=== PATIENT | male | born 1965 | race Caucasian/White ===

== ENCOUNTER 2019-12-17 08:06 | Outpatient (REF) | payer OTHER, SELFPAY ==
[2019-12-17 08:32] LABS: COVID-19 Test Negative (Negative)
== END 2019-12-17 08:07 | disposition home or self-care (01) ==
LOC: HO.LAB 08:06
PROVIDERS: PCP Internal Medicine; Visit Provider Internal Medicine
DX: Z20.828 Contact with and (suspected) exposure to other viral communicable diseases (principal)
CPT/HCPCS: 36415; 87635

== ENCOUNTER 2019-12-26 10:39 | Outpatient (REF) | payer OTHER, SELFPAY ==
[2019-12-26 11:03] LABS: COVID-19 Test Negative (Negative)
== END 2019-12-26 10:40 | disposition home or self-care (01) ==
LOC: HO.LAB 10:39
PROVIDERS: PCP Internal Medicine; Visit Provider Internal Medicine
DX: Z20.828 Contact with and (suspected) exposure to other viral communicable diseases (principal)
CPT/HCPCS: 87635

== ENCOUNTER 2020-01-24 08:11 | Outpatient (REF) | payer OTHER, SELFPAY ==
[2020-01-24 08:33] LABS: COVID-19 Test Negative (Negative)
== END 2020-01-24 08:12 | disposition home or self-care (01) ==
LOC: HO.EMPCOV 08:11
PROVIDERS: Visit Provider Internal Medicine
DX: Z20.828 Contact with and (suspected) exposure to other viral communicable diseases (principal)
CPT/HCPCS: 87635; C9803

== ENCOUNTER 2020-03-11 16:06 | Outpatient (REF) | payer SELFPAY ==
[2020-03-11 16:57] LABS: Cholesterol 199 mg/dL
[2020-03-12 05:01] LABS: SARS COV2 IgG Negative (Negative)
== END 2020-03-11 16:07 | disposition home or self-care (01) ==
LOC: HO.LNC 16:06
PROVIDERS: Visit Provider Pathology Anatomic Pathology & Clinical Pathology
DX: Z20.828 Contact with and (suspected) exposure to other viral communicable diseases (principal); Z13.220 Encounter for screening for lipoid disorders
CPT/HCPCS: 82465; 86769

== ENCOUNTER 2020-05-11 09:06 | Outpatient (REF) | payer OTHER, SELFPAY ==
[2020-05-11 10:10] LABS: COVID-19 Test Negative (Negative); IDNOW Serial# 55D5AD1C
== END 2020-05-11 09:07 | disposition home or self-care (01) ==
LOC: HO.EMPCOV 09:06
PROVIDERS: Visit Provider Internal Medicine
DX: Z20.822 Contact with and (suspected) exposure to COVID-19 (principal)
CPT/HCPCS: 36415; 87635; C9803

== ENCOUNTER 2020-10-08 08:16 | Outpatient (REF) | payer OTHER, SELFPAY ==
[2020-10-08 12:16] LABS: Influenza A PCR NEGATIVE (Negative); Influenza B PCR NEGATIVE (Negative); Resp Syncy Virus RNA Qual PCR NEGATIVE (Negative); SARS COV2 PCR INHOUSE NEGATIVE (Negative)
== END 2020-10-08 08:17 | disposition home or self-care (01) ==
LOC: HO.LAB 08:16
PROVIDERS: Visit Provider Internal Medicine
DX: Z20.822 Contact with and (suspected) exposure to COVID-19 (principal)
CPT/HCPCS: 0241U; 36415; C9803

== ENCOUNTER 2021-07-22 09:52 | Outpatient (REF) | payer OTHER, SELFPAY ==
[2021-07-22 11:12] LABS: Influenza A PCR NEGATIVE (Negative); Influenza B PCR NEGATIVE (Negative); Resp Syncy Virus RNA Qual PCR NEGATIVE (Negative); SARS COV2 PCR INHOUSE NEGATIVE (Negative)
== END 2021-07-22 09:53 | disposition home or self-care (01) ==
LOC: HO.LAB 09:52
PROVIDERS: Visit Provider Internal Medicine
DX: Z20.822 Contact with and (suspected) exposure to COVID-19 (principal)
CPT/HCPCS: 0241U; C9803

== ENCOUNTER 2022-09-06 13:20 | Outpatient (REF) | payer OTHER, SELFPAY | END 2022-09-06 13:21 | disposition home or self-care (01) | LOC: HO.HOSX 13:20 | PROVIDERS: Visit Provider Orthopaedic Surgery | DX: Z13.89 Encounter for screening for other disorder (principal) ==

== ENCOUNTER 2022-09-06 13:38 | Outpatient (REF) | payer OTHER, SELFPAY ==
--- NOTE | ~2022-09-06 | XR_ITS ---
EXAMINATION: XR FOOT, RIGHT CLINICAL INFORMATION: Right foot pain. COMPARISON: None available. TECHNIQUE: AP, lateral, and oblique views of the right foot. FINDINGS: Efqg-gm-mbazjsxg degenerative joint changes are seen in the first metatarsophalangeal joint. There is no acute fracture or dislocation. The tarsal bones are normally aligned. The soft tissues are unremarkable. XR/XR foot RT min 3V IMPRESSION: Wgvx-mh-lgqwzwhi first metatarsophalangeal osteoarthritis. No acute fracture.
== END 2022-09-06 13:39 | disposition home or self-care (01) ==
LOC: HO.XRAY 13:38
PROVIDERS: Visit Provider Orthopaedic Surgery
DX: M79.671 Pain in right foot (principal)
CPT/HCPCS: 73630

== ENCOUNTER 2022-09-08 08:36 | Outpatient (REF) | payer OTHER, SELFPAY ==
[2022-09-08 08:47] LABS: MANUAL DIFF FLAG NO
[2022-09-08 09:04] LABS: Basophils Percent Auto 0.7 % (0-2); Eosinophils Absolute Auto 0.1 X10*3/uL (0.0-0.4); Eosinophils Percent Auto 1.7 % (0-4); Hematocrit 51.6 % (42.0-52.0); Hemoglobin 17.7 g/dl (14.0-18.0); Imm Gran Abs Auto 0.03 X10*3/uL (0.00-0.03); Imm Gran Pct Auto 0.7 % (0.0-0.4); Lymphocytes Absolute Auto 1.5 X10*3/uL (1.2-4.9); Lymphocytes Percent Auto 35.2 % (20-40); Mean Corpuscular HGB Conc 34.3 g/dl (31.0-36.0); Mean Corpuscular Hemoglobin 29.7 pg (27.0-33.0); Mean Corpuscular Volume 86.7 fL (80.0-98.0); Monocytes Absolute Auto 0.3 X10*3/uL (0.1-1.2); Monocytes Percent Auto 7.7 % (2-11); Neutrophils Absolute Auto 2.3 x10*3/uL (2.0-8.3); Platelet Count 145 X10*3/uL (160-400); Red Blood Count 5.95 X10*6/uL (4.60-5.80); Red Cell Distribution Width 13.5 % (11.0-16.0); White Blood Count 4.2 X10*3/uL (4.8-10.8)
[2022-09-08 09:09] LABS: Estimated Average Glucose 94 mg/dL; Hemoglobin A1c % 4.9 %
[2022-09-08 10:07] LABS: Alanine Aminotransferase 48 U/L (0-40); Albumin Level 4.4 g/dL (3.5-5.0); Alkaline Phosphatase 55 U/L (39-117); Anion Gap 13 (12-20); Aspartate Amino Transferase 19 U/L (5-37); Bilirubin Total 1.8 mg/dL (0.0-1.0); Blood Urea Nitrogen 19 mg/dL (9-16); Calcium 9.7 mg/dL (8.4-10.2); Carbon Dioxide 24 mmol/L (22-29); Chloride 107 mmol/L (96-108); Cholesterol 147 mg/dL; Estimated Glomerular Filt Rate > 60; Ferritin 169 ng/mL (20-250); Glucose Fasting 99 mg/dL (60-99); Glucose Random 99 mg/dL (60-115); HDL Cholesterol 40 mg/dL; Iron 76 mcg/dL (45-160); LDL Cholesterol Calculated 90 mg/dl; Percent Iron Saturation 27 % (15-50); Potassium 4.1 mmol/L (3.3-5.1); Sodium 140 mmol/L (135-145); Thyroid Stimulating Hormone 0.93 uIU/mL (0.32-4.0); Total Iron Binding Capacity 286 mcg/dL (228-428); Triglycerides 85 mg/dL; Unsaturated Iron Binding 210 ug/dL; Vitamin D 25-OH Total 27.8 ng/mL (>30)
[2022-09-08 10:25] LABS: Folate 12.8 ng/mL (> or = 4.0); Vitamin B12 372 pg/mL (200-900)
== END 2022-09-08 08:37 | disposition home or self-care (01) ==
LOC: HO.LAB 08:36
PROVIDERS: Visit Provider Internal Medicine
DX: Z13.89 Encounter for screening for other disorder (principal)
CPT/HCPCS: 36415; 80053; 80061; 82306; 82607; 82728; 82746; 82947; 83036; 83540; 84443; 85025

== ENCOUNTER 2023-04-20 13:59 | Outpatient (REF) | payer OTHER, SELFPAY | END 2023-04-20 14:00 | disposition home or self-care (01) | LOC: HO.LAB 13:59 | PROVIDERS: Visit Provider Internal Medicine | DX: Z13.89 Encounter for screening for other disorder (principal) ==

== ENCOUNTER 2024-06-26 08:33 | Outpatient (REF) | payer OTHER, SELFPAY ==
--- OUTSIDE RECORDS SUMMARY | 2024-06-26 08:50 | XMS_ITS | Data Portability ---
Author Organization [facility], , [facility] Address [address] [place] [address] Assessment No assessment recorded. Plan of Treatment Reminders Order Date Submit Date Provider Last Modified By Organization Details Last Modified Time Details Appointments None record ed. Lab None record ed. Referral None record ed. Procedures None record ed. Surgeries None record ed. Imaging None record ed. Medication Orders None record ed. Patient TargetsNo targets recorded. Patient Instructions Encounter Date Encounter Id Patient Instructions Last Modified By Organization Details Last Modified Time 03/09/2015 [id number] RX given for glasses-remove glasses to read Keep contact lens RX same to avoid reading glasses at this time jmerlin Not available 03/09/2015 15:21:45 Reason for Referral None Reported. Problems Name Problem SNOMED Code Status Onset Date Resolution Date Notes Provider Name and Address Organization Details Recorded Time Myopia 84203313 Active Bhaskar Baker, OD [address] [place] [address], [address], [facility] 5 15:21:45 Astigmatism 03787911 Active Bhaskar Baker, OD [address] [place] [address], [address], [facility] 5 15:21:45 Presbyopia 34635730 Active Bhaskar Baker, OD [address] [place] [address], [address], [facility] 5 15:21:45 Problem Notes None recorded. Procedures Surgical History Date Name Laterality Status Provider Name and Address Organization Details Recorded Time 5 Refraction completed Bhaskar Baker, OD [address] [place], [address], [facility] 03/09/2015 15:19:17 5 Contact Lens Re-eval completed Bhaskar Baker OD [address] [facility], [place], [address], [facility] 03/09/2015 15:19:17 Imaging Results None recorded. Procedure Notes None recorded. Medical Equipment None Reported. Allergies No known drug allergies Medications Not known to be on any medication Vitals None Recorded Social History None recorded. Functional Status None recorded. Mental Status None recorded. Family History Nothing Reported. Medical History No medical history recorded. Past Encounters Encounter ID Performer Location Encounter Start Date Encounter Closed Date Diagnosis/Indication Diagnosis SNOMED-CT Code Diagnosis ICD10 Code Diagnosis Note [id number] [facility]ask[facility] [address] [address] 03/09/2015 14:14:06 03/09/2015 15:19:52 Myopia 77194031 H52.13 Astigmatism 33814191 H52 .223 Presbyopia 90240013 H52. 4 Prescripti on, fitting and dispensing of contact lens 9599626 Z46.0 Keep CLRX same to avoid need for jose glasses Focus dailies Toric 8.6 -3.75-0,75 x180/-4.25 -0.80h574 Health Concerns Section Related Observation LastModified by Organization Detai ls LastModified Time None Recorded Concern Status LastModified by Organization Details LastModified Time None Recorded Advance Directives Directive None Recorded Payers Encounter Date Sequence Insurance Name Policy Number Policy Akhtar Covered Member ID Akhtar Member ID Guarantor Name 03/09/2015 1 [facility] [id number] Carlos Trent [id number] Carlos Trent Notes Date Note Type Note Provider Name and Address Organization Details Recorded Time 03/09/2015 text/html Comprehensive Ey e ExamReported bypatient.Quality:3 year exam; no blurred vision Context:currently wears Soft contact lenses Modifying factors:wears contacts distance only Associated Symptoms:no redness; no itching; no floaters; no drynessContact Lens ExamReported bypatient.Current Contact Lens:focus toric dailys -3.75-0.87j850 -4.25-0.07e653 Quality:no blurred vision with current contact lenses; comfortable Frequency:daily Replacement Schedule:daily Modifying Facotrs:does not sleep in CL Average Wearing Time (hrs):14hrs/day Bhaskar Baker, OD [address] [place] [address], [place], [address], [facility] 03/09/2015 15:22:09
[2024-06-26 09:39] LABS: Hematocrit 47.8 % (42.0-52.0); Hemoglobin 16.8 g/dl (14.0-18.0); Mean Corpuscular HGB Conc 35.1 g/dl (31.0-36.0); Mean Corpuscular Hemoglobin 29.8 pg (27.0-33.0); Mean Corpuscular Volume 84.9 fL (80.0-98.0); Mean Platelet Volume 11.2 fL (9.4-12.4); Platelet Count 119 X10*3/uL (160-400); Red Blood Count 5.63 X10*6/uL (4.60-5.80); Red Cell Distribution Width 13.1 % (11.0-16.0); White Blood Count 4.8 X10*3/uL (4.8-10.8)
[2024-06-26 10:15] LABS: Alanine Aminotransferase 41 U/L (0-40); Albumin Level 4.4 g/dL (3.5-5.0); Alkaline Phosphatase 50 U/L (39-117); Anion Gap 11 (12-20); Aspartate Amino Transferase 23 U/L (5-37); Bilirubin Direct 0.5 mg/dL (0.0-0.5); Bilirubin Total 1.8 mg/dL (0.0-1.0); Blood Urea Nitrogen 19 mg/dL (9-16); Calcium 9.4 mg/dL (8.4-10.2); Carbon Dioxide 26 mmol/L (22-29); Chloride 108 mmol/L (96-108); Cholesterol 174 mg/dL (<200); Estimated Glomerular Filt Rate > 60; Glucose Random 91 mg/dL (60-115); HDL Cholesterol 48 mg/dL (>40); LDL Cholesterol Calculated 105 mg/dL (<100); Magnesium 2.1 mg/dL (1.6-2.6); Potassium 4.1 mmol/L (3.3-5.1); Sodium 141 mmol/L (135-145); Total Protein 6.9 g/dL (6.5-8.0); Triglycerides 109 mg/dL (<150)
[2024-06-26 10:24] LABS: TSH reflex Free T4 1.87 uIU/mL (0.32-4.0); Vitamin D 25-OH Total 25.7 ng/mL (>30)
[2024-06-26 10:36] LABS: Folate 11.9 ng/mL (> or = 4.0); Vitamin B12 971 pg/mL (200-900)
[2024-06-27 03:49] LABS: CRP High Sensitivity 0.9 mg/L
[2024-06-30 12:24] LABS: Vitamin A 67 mcg/dL (38-98)
[2024-07-01 09:19] LABS: Vitamin C 1.1 mg/dL (0.2-2.1)
[2024-07-03 13:48] LABS: Nicotinamide 24 ng/mL (see note); Vit B3 - Nicotinic Acid <20 ng/mL (see note)
[2024-07-07 08:53] LABS: Vitamin B1 11 nmol/L (8-30)
== END 2024-06-26 08:34 | disposition home or self-care (01) ==
LOC: HO.LAB 08:33
PROVIDERS: Visit Provider Internal Medicine Cardiovascular Disease
DX: I49.9 Cardiac arrhythmia, unspecified (principal)
CPT/HCPCS: 36415; 80048; 80061; 80076; 82180; 82306; 82607; 82746; 83735; 84207; 84425; 84443; 84590; 84591; 85027; 86141

== ENCOUNTER → 2024-07-12 10:30 | Outpatient (REF) | payer OTHER, SELFPAY ==
--- NOTE | 2024-07-12 10:34 | HM_ITS ---
Conclusion: 1. Baseline was normal sinus rhythm with average heart of 71 beats per minute 2. No significant pauses noted 3. Multiple short brief episodes of atrial fibrillation noted with longest episode lasting 1 minute and 18 seconds with total burden of 0.04% 4. Occasional PACs and PVCs noted 5. No patient marked events MTDD
--- OUTSIDE RECORDS SUMMARY | 2024-07-12 11:35 | XMS_ITS | Data Portability ---
Author Organization [facility], , [facility] Address [address] [place] [address] Assessment No assessment recorded. Plan of Treatment [...] By Organization Details Last Modified Time 03/09/2015 [id number] RX given for glasses-remove glasses to read Keep contact lens RX same to avoid reading glasses at this time jmerlin Not available 03/09/2015 15:21:45 Reason for Referral None Reported. Problems Name Problem SNOMED Code Status Onset Date Resolution Date Notes Provider Name and Address Organization Details Recorded Time Myopia 47525588 Active Bhaskar Baker, OD [address] [place] [address], [address], [facility] 5 15:21:45 Astigmatism 63085857 Active Bhaskar Baker, OD [address] [place] [address], [address], [facility] 5 15:21:45 Presbyopia 81513353 Active Bhaskar Baker, OD [address] [place] [address], [address], [facility] 5 15:21:45 Problem Notes None recorded. Procedures Surgical History Date Name Laterality Status Provider Name and Address Organization Details Recorded Time 5 Refraction completed Bhaskar Baker, OD [address] [place], [address], [facility] 03/09/2015 15:19:17 5 Contact Lens Re-eval completed Bhaskar Baker OD [address] [facility], [place], [address], [facility] 03/09/2015 15:19:17 Imaging Results None recorded. Procedure [...] SNOMED-CT Code Diagnosis ICD10 Code Diagnosis Note [id number] Bhaskar Baker OD [facility], [address] [address] 03/09/2015 14:14:06 03/09/2015 15:19:52 Myopia 94942801 H52.13 Astigmatism 64119745 H52 .223 Presbyopia 56585831 H52. 4 Prescripti on, fitting and dispensing of contact lens 1171687 Z46.0 Keep CLRX same to avoid need for jose glasses Focus dailies Toric 8.6 -3.75-0,75 x180/-4.25 -0.96o811 Health Concerns Section Related Observation LastModified by Organization Detai ls LastModified Time None Recorded Concern Status LastModified by Organization Details LastModified Time None Recorded Advance Directives Directive None Recorded Payers Encounter Date Sequence Insurance Name Policy Number Policy Akhtar Covered Member ID Akhtar Member ID Guarantor Name 03/09/2015 1 [facility] [id number] Carlos Trent [id number] Carlos Trent Notes Date Note Type Note Provider Name and Address Organization Details Recorded Time 03/09/2015 text/html Comprehensive Ey e ExamReported bypatient.Quality:3 year exam; no blurred vision Context:currently wears Soft contact lenses Modifying factors:wears contacts distance only Associated Symptoms:no redness; no itching; no floaters; no drynessContact Lens ExamReported bypatient.Current Contact Lens:focus toric dailys -3.75-0.37j692 -4.25-0.25w610 Quality:no blurred vision with current contact lenses; comfortable Frequency:daily Replacement Schedule:daily Modifying Facotrs:does not sleep in CL Average Wearing Time (hrs):14hrs/day Bhaskar Baker, OD [address] [place] [address], [place], [address], [facility] 03/09/2015 15:22:09
== END ==
LOC: HO.CARD 10:30
PROVIDERS: Visit Provider Internal Medicine Cardiovascular Disease
DX: I49.9 Cardiac arrhythmia, unspecified (principal); I49.1 Atrial premature depolarization; I49.3 Ventricular premature depolarization
CPT/HCPCS: 93242

== ENCOUNTER → 2024-07-12 10:34 | Outpatient (BNV) | payer OTHER, SELFPAY | PROVIDERS: Visit Provider Internal Medicine Cardiovascular Disease | DX: I48.91 Unspecified atrial fibrillation (principal) | CPT/HCPCS: 93244 ==

== ENCOUNTER → 2024-08-08 08:57 | Outpatient (REF) | payer OTHER, SELFPAY ==
--- NOTE | 2024-08-08 09:00 | CA_ITS ---
Transthoracic Echocardiogram Amended Patient (Last, First, Middle): Carlos Trent E Gender: Male Date of : 1965 Age: 59 Procedure Date: 08/08/2024 Procedure Type: Transthoracic Echocardiogram Location: OP Height: 180.34 cm Weight: 117.94 kg BSA: 2.36 m2 Heart Rate: 61 bpm BP: 155 / 95 mmHg Records Assistant: TRISTEN Referring MD: Vadim Mccartney MD Polish Compounder: Vadim Mccartney MD Symptoms: I49.9 - Cardiac arrhythmia, unspecified Study Quality: Adequate ECG Rhythm: Sinus Conclusions: - 1. Normal LV ejection fraction 55-60% 2. Mildly dilated left atrium 3. Normal cardiac valvular Dopplers 4. Mildly dilated ascending aorta at 4 cm 5. Normal RV systolic pressure 6. No gross pericardial effusion Findings Left Ventricle Normal left ventricular size, thickness, and systolic function. The visually estimated ejection fraction is between 55-60%. Spectral Doppler is indicative of a normal filling pattern. Right Ventricle Normal right ventricular cavity size and systolic function. Atria The left atrium is mildly dilated. There is no evidence of interatrial shunt. The right atrium is normal in size. Aortic Valve Normal aortic valve structure and function. There is no aortic valve stenosis. There is no aortic valve regurgitation. Mitral Valve Normal mitral valve structure and function. There is trace mitral valve regurgitation. There is no mitral valve stenosis. Pulmonic Valve The pulmonic valve is likely normal. There is trace pulmonic valve regurgitation. Tricuspid Valve Normal tricuspid valve structure. There is trace tricuspid valve regurgitation. The right ventricular systolic pressure is normal. The right ventricular systolic pressure is 19 mmHg. Normal right atrial pressure. There is no evidence of pulmonary hypertension. Great Vessels The pulmonary artery was not well visualized. There is mild dilatation of the ascending aorta measuring 4.00 cm. There is no evidence of plaque in the aorta. Venous The inferior vena cava is normal in size and collapses greater than 50% with inspiration. Pericardium/Pleural There is no evidence of pericardial effusion. Prior Study Comparison no previous study in the last 5 years for comparison Measurements 2D Linear Measurements IVSd: 1.06 0.6-0.9/0.6-1.0 cm LVIDd: 4.53 3.9-5.3/4.2-5.9 cm LVIDd Index: 1.92 2.4-3.2/2.2-3.1 cm/m2 LVIDs: 3.08 2.0-3.6 cm LVPWd: 1.04 0.7-1.1 cm LA Diam: 3.80 2.7-3.8/3.0-4.0 cm LAIDs Index: 1.61 1.5-2.3 cm/m2 LV Mass: 206.41 67-162/88-224 g LV Mass Index: 87.46 43-95/49-115 g/m2 LVOT Diam: 2.20 3.0+(-)1.3 cm 2D Volumes LA Vol: 34.30 2D Systolic Function EF 4C: 59.00 >55% EF 2C: 57.00 >55% EF BiP: 59.00 >55% Mitral Valve MV Pk E: 0.60 MV PK A: 0.51 MV Decel Time: 199.00 E/A: 1.20 E'Lateral: 9.79 E'Medial: 6.85 E/E' Med: 8.80 E/E' Lat: 6.10 PHT: 58.00 MVA PHT: 3.79 Decel [place]: 3.01 Aortic Valve AoV Pk Doc: 1.20 AoV Mn Doc: 0.90 AoV VTI: 0.27 AoV Pk Grad: 6.00 Aov Mn Grad: 4.00 SEEMA Cont.VTI: 2.69 LVOT LVOT Pk Doc: 0.89 LVOT Mn Doc: 0.61 LVOT VTI: 0.19 LVOT Pk Grad: 3.00 LVOT Mn Grad: 2.00 LVOT Diam: 2.20 LVOT Area: 3.80 Diastolic Function MV Pk E: 0.60 MV Pk A: 0.51 E/A: 1.20 E'Medial: 6.85 E/E' Med: 8.80 E' Laterial: 9.79 E/E' Lat: 6.10 Right Ventricle TAPSE (mm): 19.90 TVS' Doc: 11.60 Tricuspid Valve TR Pk Doc: 2.01 TR Pk Grad: 16.00 RA Press: 3.00 RVSP: 19.00 Great Vessels Aorta Sinus of Valsalva: 3.90 2.0-3.5 cm Ao Asc: 4.00 2.1-3.4 cm Ao Arch: 3.10 Pulmonary Valve PV Pk Doc: 0.98 Peak PV Grad: 4.00 Updated in Other Vendor System with Status of Final Vadim Mccartney MD electronically signed on 08/08/2024 3:56:40 PM with status of Final
--- NOTE | 2024-08-08 09:00 | CA_ITS ---
Acquisition Time: 2024-08-08 09:41:33 Total Exercise Time: 00:07:09 Test Indications: I49.9 Medications: SEE H&P Protocol: SARITA Max HR: 148 BPM 92% of Pred: 160 BPM Max BP: 210/108 mmHG Max Work Load: 8.7 METS Exercise stress tets with exercise 7 mins 9 secs of Sarita Protocol, achieving 92% MPHR, with reports of mild SOB, no chets pain, with isolated PACs and PVCs, with hypertensive response to exercise- baseline BP 160/100 and max BP 210/108. Without EKG changes meeting criteria for ischemia. In recovery, breathing returned to baseline. Test reviewed with Dr. Mccartney. Referred By: Vadim Mccartney Electronically Signed By: Juan River
--- OUTSIDE RECORDS SUMMARY | 2024-08-08 09:20 | XMS_ITS | Data Portability ---
Author Organization [facility], , [facility] Address [address] [place] [address] Assessment No assessment recorded. Plan of Treatment [...] By Organization Details Last Modified Time 03/09/2015 [id number] RX given for glasses-remove glasses to read Keep contact lens RX same to avoid reading glasses at this time jmerlin Not available 03/09/2015 15:21:45 Reason for Referral None Reported. Problems Name Problem SNOMED Code Status Onset Date Resolution Date Notes Provider Name and Address Organization Details Recorded Time Myopia 23134302 Active Bhaskar Baker, OD [address] [place] [address], [address], [facility] 5 15:21:45 Astigmatism 69936810 Active Bhaskar Baker, OD [address] [place] [address], [address], [facility] 5 15:21:45 Presbyopia 45767365 Active Bhaskar Baker, OD [address] [place] [address], [address], [facility] 5 15:21:45 Problem Notes None recorded. Procedures Surgical History Date Name Laterality Status Provider Name and Address Organization Details Recorded Time 5 Refraction completed Bhaskar Baker, OD [address] [place], [address], [facility] 03/09/2015 15:19:17 5 Contact Lens Re-eval completed Bhaskar Baker OD [address] [facility], [place], [address], [facility] 03/09/2015 15:19:17 Imaging Results None recorded. Procedure [...] SNOMED-CT Code Diagnosis ICD10 Code Diagnosis Note [id number] Bhaskar Baker OD [facility], [address] [address] 03/09/2015 14:14:06 03/09/2015 15:19:52 Myopia 24941084 H52.13 Astigmatism 00998525 H52 .223 Presbyopia 79739790 H52. 4 Prescripti on, fitting and dispensing of contact lens 8050291 Z46.0 Keep CLRX same to avoid need for jose glasses Focus dailies Toric 8.6 -3.75-0,75 x180/-4.25 -0.66p179 Health Concerns Section Related Observation LastModified by Organization Detai ls LastModified Time None Recorded Concern Status LastModified by Organization Details LastModified Time None Recorded Advance Directives Directive None Recorded Payers Encounter Date Sequence Insurance Name Policy Number Policy Akhtar Covered Member ID Akhtar Member ID Guarantor Name 03/09/2015 1 [facility] [id number] Carlos Trent [id number] Carlos Trent Notes Date Note Type Note Provider Name and Address Organization Details Recorded Time 03/09/2015 text/html Comprehensive Ey e ExamReported bypatient.Quality:3 year exam; no blurred vision Context:currently wears Soft contact lenses Modifying factors:wears contacts distance only Associated Symptoms:no redness; no itching; no floaters; no drynessContact Lens ExamReported bypatient.Current Contact Lens:focus toric dailys -3.75-0.15r817 -4.25-0.89v559 Quality:no blurred vision with current contact lenses; comfortable Frequency:daily Replacement Schedule:daily Modifying Facotrs:does not sleep in CL Average Wearing Time (hrs):14hrs/day Bhaskar Baker, OD [address] [place] [address], [place], [address], [facility] 03/09/2015 15:22:09
== END ==
LOC: HO.CARD 08:57
PROVIDERS: Visit Provider Internal Medicine Cardiovascular Disease
DX: I49.9 Cardiac arrhythmia, unspecified (principal)
CPT/HCPCS: 93017; 93306

== ENCOUNTER → 2024-08-08 09:00 | Outpatient (BNV) | payer OTHER, SELFPAY | PROVIDERS: Visit Provider Internal Medicine Cardiovascular Disease | DX: R94.31 Abnormal electrocardiogram [ECG] [EKG] (principal); I51.7 Cardiomegaly; I49.1 Atrial premature depolarization; I49.3 Ventricular premature depolarization | CPT/HCPCS: 93016; 93018; 93320; 93325; 93350 ==

== ENCOUNTER → 2024-08-22 20:30 | Outpatient (REF) | payer OTHER, SELFPAY ==
--- OUTSIDE RECORDS SUMMARY | 2024-08-22 22:22 | XMS_ITS | Data Portability ---
Author Organization [facility], , [facility] Address [address] [place] [address] Assessment No assessment recorded. Plan of Treatment [...] By Organization Details Last Modified Time 03/09/2015 [id number] RX given for glasses-remove glasses to read Keep contact lens RX same to avoid reading glasses at this time jmerlin Not available 03/09/2015 15:21:45 Reason for Referral None Reported. Problems Name Problem SNOMED Code Status Onset Date Resolution Date Notes Provider Name and Address Organization Details Recorded Time Myopia 55460985 Active Bhaskar Baker, OD [address] [place] [address], [address], [facility] 5 15:21:45 Astigmatism 21473757 Active Bhaskar Baker, OD [address] [place] [address], [address], [facility] 5 15:21:45 Presbyopia 93997127 Active Bhaskar Baker, OD [address] [place] [address], [address], [facility] 5 15:21:45 Problem Notes None recorded. Procedures Surgical History Date Name Laterality Status Provider Name and Address Organization Details Recorded Time 5 Refraction completed Bhaskar Baker, OD [address] [place], [address], [facility] 03/09/2015 15:19:17 5 Contact Lens Re-eval completed Bhaskar Baker OD [address] [facility], [place], [address], [facility] 03/09/2015 15:19:17 Imaging Results None recorded. Procedure [...] SNOMED-CT Code Diagnosis ICD10 Code Diagnosis Note [id number] Bhaskar Baker OD [facility], [address] [address] 03/09/2015 14:14:06 03/09/2015 15:19:52 Myopia 90790220 H52.13 Astigmatism 53709323 H52 .223 Presbyopia 87761841 H52. 4 Prescripti on, fitting and dispensing of contact lens 0892478 Z46.0 Keep CLRX same to avoid need for jose glasses Focus dailies Toric 8.6 -3.75-0,75 x180/-4.25 -0.52s255 Health Concerns Section Related Observation LastModified by Organization Detai ls LastModified Time None Recorded Concern Status LastModified by Organization Details LastModified Time None Recorded Advance Directives Directive None Recorded Payers Insurance Date Sequence Insurance Name Policy Number Policy Akhtar Covered Member ID Akhtar Member ID Guarantor Name 03/23/2018 1 [facility] [id number] Carlos Trent [id number] Carlos Trent Notes Date Note Type Note Provider Name and Address Organization Details Recorded Time 03/09/2015 text/html Comprehensive Ey e ExamReported bypatient.Quality:3 year exam; no blurred vision Context:currently wears Soft contact lenses Modifying factors:wears contacts distance only Associated Symptoms:no redness; no itching; no floaters; no drynessContact Lens ExamReported bypatient.Current Contact Lens:focus toric dailys -3.75-0.27l573 -4.25-0.55p830 Quality:no blurred vision with current contact lenses; comfortable Frequency:daily Replacement Schedule:daily Modifying Facotrs:does not sleep in CL Average Wearing Time (hrs):14hrs/day Bhaskar Baker, OD [address] [place] [address], [place], [address], [facility] 03/09/2015 15:22:09
== END ==
LOC: HO.SL 20:30
PROVIDERS: Visit Provider Internal Medicine Cardiovascular Disease
DX: I49.9 Cardiac arrhythmia, unspecified (principal); R40.0 Somnolence; G47.61 Periodic limb movement disorder
CPT/HCPCS: 95810

== ENCOUNTER → 2024-08-23 00:27 | Outpatient (BNV) | payer OTHER, SELFPAY | PROVIDERS: Visit Provider Psychiatry & Neurology Neurology | DX: R06.83 Snoring (principal) | CPT/HCPCS: 95810 ==

== ENCOUNTER 2024-09-18 13:59 | Outpatient (AMB) | payer OTHER, SELFPAY ==
--- NOTE | 2024-09-18 14:00 | A.OFFVIS_ITS ---
Vital Signs 09/18/24 14:01 Height 5 ft 11 in Weight 260 lb BMI 36.3 BP 118/72 Blood Pressure Location Lt brachial Position Sitting Pulse 78 Intake Visit Reasons: f/u CTA and Calcium Score Intake Note: Follow-up CTA and Calcium Score feeling good Manager Urgent Care Required: No Allergies No Known Allergies Allergy (Verified 09/18/24 14:03) Medication List - Last Reconciled 09/18/24 by Vadim Mccartney MD No Known Home Meds HPI Comments Details: Humberto comes for cardiology consultation today for several issues including recent testing. He is 59 years old with Gilbert's syndrome whom I had seen few years ago for palpitation at that time had diagnose with cardiac arrhythmias with PACs and short runs of PACs. Since then he has been generally doing well obviously at high stress job. Recently while traveling he was suffering from upper respiratory infection and cold and started noticing increased symptoms of palpitation while he was out of the country. At which time his smart phone based EKG was suggestive of cardiac arrhythmias with PACs and short runs. He subsequently self-treated his cold symptoms and the symptoms of palpitation improved. Subsequently however [place] the [place] and we pursued some cardiac workup given his risk factors. He has been noticing elevated blood pressure with blood pressure ranging up to systolic 160. He said however when he is measuring his blood pressure at home since then under resting conditions blood pressure has been much better controlled. He has instituted aggressive lifestyle modification and has been exercising regularly and has been participating in more diet modification and supplement therapy. He has noted 5- 6 lb weight loss over the last few weeks in his noticed that his blood pressures gradually been downtrending although systolic blood pressure goes up to 140 with diastolic blood pressure up to 93 mm Hg. He has not had any recurrent palpitations. However this led to workup with a Holter monitor showing occasional burden of PACs and PVCs along with short brief episodes of atrial fibrillation with longest episode lasting 1 minute and 18 seconds with a total burden of 0.04%. Subsequent echocardiogram showed normal LV ejection fraction 55-60% with mildly dilated left atrium as well as mildly dilated ascending aorta at 4 cm. Given risk factors and family history of coronary disease in his father who at age 54 had coronary disease and myocardial infarction but lived up to age of 74 when he had a stroke associated with his atrial fibrillation. He did not undergo any intervention including no pharmacotherapy for his coronary artery disease. Patient subsequently had coronary calcium score done which was significantly elevated with a total score of 397 predominantly in the LAD territory. Preceding this he had undergone a stress test which at moderately high workload was negative for ischemia however given his diffuse atherosclerotic disease he underwent a coronary CTA which showed nonobstructive coronary disease but with diffuse and severe atherosclerosis in LAD as well as atherosclerosis noted in his circumflex as well as right coronary artery in all 3 coronary distribution. He said he has not been exercising and does not have any exertional symptoms of chest pain or shortness of breath or reduced exercise tolerance. He overall feels well. Currently not taking any pharmacologic therapies. He is currently taking supplemental therapies. Review of Systems Const Denies chills, Denies fatigue, Denies fever(s), Denies frequent falls, Denies weakness, Denies weight gain and Denies weight loss Eyes Denies loss of vision ENT Denies dizziness Card Denies chest pain, Denies leg edema, Denies lightheadedness, Denies palpitations, Denies dyspnea, Denies dyspnea on exertion, Denies orthopnea and Denies other (loss of consciousness) Resp Denies cough, Denies dyspnea, Denies dyspnea on exertion and Denies wheezing GI Denies hematochezia and Denies change in stool character Denies dysuria and Denies urinary frequency Musc Denies abnormal gait, Denies muscle weakness, Denies numbness, Denies radiating pain into limb and Denies tingling Skin/Breast Denies nail changes and Denies rash Neuro Denies abnormal gait, Denies dizziness, Denies frequent falls, Denies loss of vision, Denies memory loss, Denies numbness, Denies tingling and Denies weakness Psych Denies depression and Denies memory loss Endo Denies fatigue and Denies palpitations Hasmukh/Lymph Reports easy bruising and Reports other (anemia) Aller/Immun Denies wheezing Physical Exam Vital Signs: Last Vital Signs Pulse 78 09/18/24 14:01 BP 118/72 09/18/24 14:01 BMI result Body Mass Index 36.3 Const General: cooperative, comfortable, no acute distress, alert, awake, Physically active and well groomed Nutritional Appearance: obese Orientation/consciousness: patient oriented x3 Limitations: no limitations HEENT Head: Yes normocephalic and Yes atraumatic Neck Neck: Yes trachea midline, Yes supple and Yes no JVD Resp Effort & Inspection: normal respiratory effort Auscultation: clear to auscultation bilaterally Cardio Jugular venous distension: no JVD Palpation: normal PMI Rate: regular rate Rhythm: regular rhythm Heart sounds: S1 normal heart sound present, S2 normal heart sound present, no click, no gallops and no murmurs Skin General skin exam: no rashes or lesions noted Neuro General: patient oriented x3 and no focal motor deficits Extrem General: Yes no clubbing, cyanosis or edema Psych Appearance: grossly normal Office Procedures EKG Details: EKG shows normal sinus rhythm with ST T wave changes in inferior leads which most likely represents repolarization abnormality [id number]-[id number], Complete Assessment & Plan Assessment & Plan (1) Coronary atherosclerosis: Code(s): I25.10 - Atherosclerotic heart disease of [place] coronary artery without angina pectoris Category: Medical Plan: Diffuse coronary atherosclerosis with family history of coronary artery disease in his father. Patient has LDL of 105 with normal C-reactive protein as well as elevated blood pressure readings as has obesity. We had a detailed discussion about management of atherosclerotic disease as per ACC/aha guidelines. He has never had a primary acute coronary syndrome event or any interventions performed. We discussed management for. Early preventative measures to reduce progressive atherosclerotic disease as well as atherosclerotic events. Recommendations are baby aspirin therapy as well as statin therapy to reduce LDL by 50% compared to baseline LDL. He said he currently wants to focus on p.o. orally lifestyle modification and does not want any pharmacotherapy. He does not have any symptoms or evidence of myocardial ischemia by physiologic testing as well as by coronary anatomy findings. We discussed about pursuing stress testing in his year's time to evaluate for progressive coronary artery disease and myocardial ischemia. Meanwhile he would like to pursue aggressive lifestyle modification with diet modification as well as weight loss. He would also like to control his blood pressure by non pharmacologic means. Recommend to continue to monitor blood pressure at home and maintain a log. He is going to focus on low-salt diet as well as dietary modification. He has no evidence of sleep apnea by recent testing. He does have some findings of hypotension including enlarged ascending aorta as well as left atrial enlargement. Importance of aggressive blood pressure control to target was discussed with him. He will report to me any new symptoms. (2) Cardiac arrhythmia: Code(s): I49.9 - Cardiac arrhythmia, unspecified Category: Medical Plan: Cardiac arrhythmias including findings of atrial fibrillation although brief on Holter monitor. He did not have significant symptoms during the Holter monitoring although preceded with symptoms of palpitation while he was having cold symptoms. Definitely his arrhythmias seem to be exacerbated by stress. He does have low to intermediate risk for thromboembolic complication given his elevated blood pressure as well as atherosclerotic findings in coronary tree along with mild left atrial enlargement. We discussed about findings and risk associated with atrial fibrillation even if he does not have any symptoms of thromboembolic complication including stroke. He is currently taking [id number] supplemental therapy with nattokinase to provide him with anticoagulant effect. We discussed about oral anticoagulant therapy with Eliquis which has established oral anticoagulant therapy to reduce stroke. He wants to currently defer it. He will report to me in his symptoms. He will pursue aggressive lifestyle modification including aggressive weight loss program and management of his blood pressure. Follow-up Holter monitor in 1 year's time. Will follow up in the clinic in 1 year's time, sooner p.r.n.. Thank you for allowing me to partake in his care Orders: Orders ECG 3 day holter monitor 1 Year I49.9 - Cardiac arrhythmia, unspecified CA echo stress exercise 1 Year I25.10 - Atherosclerotic heart disease of [place] coronary artery without angina pectoris Coding Level of Care Code New Pt Level 4 (06294) Complex EM visit Add On G2211 Diagnoses Coronary atherosclerosis I25.10 Cardiac arrhythmia I49.9 CPT Codes EKG - CPT: 83617-[id number], Complete ([id number])
[2024-09-18 14:01] VITALS: BP 118/72; PULSE 78; BMI 36.3
--- OUTSIDE RECORDS SUMMARY | 2024-09-18 14:43 | XMS_ITS | Data Portability ---
Author Organization [facility], , [facility] Address [address] [place] [address] Assessment No assessment recorded. Plan of Treatment [...] By Organization Details Last Modified Time 03/09/2015 [id number] RX given for glasses-remove glasses to read Keep contact lens RX same to avoid reading glasses at this time jmerlin Not available 03/09/2015 15:21:45 Reason for Referral None Reported. Problems Name Problem SNOMED Code Status Onset Date Resolution Date Notes Provider Name and Address Organization Details Recorded Time Myopia 87130791 Active Bhaskar Baker, OD [address] [place] [address], [phone], [facility] 5 15:21:45 Astigmatism 19973371 Active Bhaskar Baker, OD [address] [place] [address], [phone], [facility] 5 15:21:45 Presbyopia 12850239 Active Bhaskar Baker, OD [address] [place] [address], [phone], [facility] 5 15:21:45 Problem Notes None recorded. Procedures Surgical History Date Name Laterality Status Provider Name and Address Organization Details Recorded Time 5 Refraction completed Bhaskar Baker, OD [address] [place] [address], [phone], [facility] 03/09/2015 15:19:17 5 Contact Lens Re-eval completed Bhaskar Baker, GARO [address] [place] [address], [phone], [facility] 03/09/2015 15:19:17 Imaging Results None recorded. Procedure [...] SNOMED-CT Code Diagnosis ICD10 Code Diagnosis Note [id number] Bhaskar Baker OD [facility] [address] [address] 03/09/2015 14:14:06 03/09/2015 15:19:52 Myopia 85241311 H52.13 Astigmatism 08438647 H52 .223 Presbyopia 73220227 H52. 4 Prescripti on, fitting and dispensing of contact lens 3508092 Z46.0 Keep CLRX same to avoid need for jose glasses Focus dailies Toric 8.6 -3.75-0,75 x180/-4.25 -0.86n475 Health Concerns Section Related Observation LastModified by Organization Detai ls LastModified Time None Recorded Concern Status LastModified by Organization Details LastModified Time None Recorded Advance Directives Directive None Recorded Payers Insurance Date Sequence Insurance Name Policy Number Policy Akhtar Covered Member ID Akhtar Member ID Guarantor Name 03/23/[address] [place] [address] [id number] Carlos Trent [id number] Carlos Trent Notes Date Note Type Note Provider Name and Address Organization Details Recorded Time 03/09/2015 text/html Comprehensive Ey e ExamReported bypatient.Quality:3 year exam; no blurred vision Context:currently wears Soft contact lenses Modifying factors:wears contacts distance only Associated Symptoms:no redness; no itching; no floaters; no drynessContact Lens ExamReported bypatient.Current Contact Lens:focus toric dailys -3.75-0.10n288 -4.25-0.09m956 Quality:no blurred vision with current contact lenses; comfortable Frequency:daily Replacement Schedule:daily Modifying Facotrs:does not sleep in CL Average Wearing Time (hrs):14hrs/day Bhaskar Baker, OD [address] [place] [address], [place], [phone], [facility] 03/09/2015 15:22:09
== END 2024-09-18 14:56 | disposition home or self-care (01) ==
PROVIDERS: Visit Provider Internal Medicine Cardiovascular Disease
DX: I25.10 Atherosclerotic heart disease of native coronary artery without angina pectoris (principal); I49.9 Cardiac arrhythmia, unspecified
CPT/HCPCS: 93010; 99214

== ENCOUNTER → 2024-09-18 13:59 | Outpatient (BNVA) | payer OTHER, SELFPAY | PROVIDERS: Visit Provider Internal Medicine Cardiovascular Disease | DX: I25.10 Atherosclerotic heart disease of native coronary artery without angina pectoris (principal) | CPT/HCPCS: 93005 ==

== ENCOUNTER 2025-01-06 10:49 | Outpatient (REF) | payer OTHER, SELFPAY ==
--- NOTE | ~2025-01-06 | XR_ITS ---
EXAMINATION: X-ray lumbar spine CLINICAL INFORMATION: Spinal stenosis COMPARISON: Correlation MRI 01/06/2025 TECHNIQUE: 4 views, FINDINGS: 5 lumbar type vertebral bodies. Grade 1 anterolisthesis at L5-S1. Minimal retrolisthesis at L1-2. Vertebral body heights are maintained. No evidence of acute fracture. Multilevel disc degeneration including more prominent findings of moderate L2-3, L3-4, L4-5 disc degeneration. Multilevel facet degeneration. No significant dynamic instability appreciated on the flexion-extension views. No suspicious bony lesions.. XR/XR lumbar spine 4V min IMPRESSION: No acute findings. Moderate lumbar spondylosis as detailed above. Electronically signed by: Abdiel Veliz MD 01/07/2025 08:31 AM EDT
--- NOTE | ~2025-01-06 | MR_ITS ---
EXAM: MRI Lumbar Spine without Contrast. TECHNIQUE: Multiplanar multisequence MRI of the lumbar spine with performed without contrast. INDICATION: M47.816 - Spondylosis without myelopathy or radiculopathy, lumbar region PRIOR: None FINDINGS: 5 non-rib bearing lumbar segments are assumed for numbering purposes. If level specific intervention is planned, correlate with an x-ray to ensure concordant numbering. Marrow and end-plates: 15 mm lesion in the anterior superior L1 vertebral body that demonstrates coarse trabeculation and increased signal on T1 and T2 sequences is likely a benign vertebral hemangioma. Modic 2 changes present anteriorly at L2-3. Mixed Modic 1-2 changes are present at L3-4 Alignment: Minimal grade 1 retrolisthesis is present at L2-3 and L3-4 and minimal anterolisthesis is present L5-S1. Soft tissues: Benign parapelvic cysts are present in both kidneys. Conus: The termination of conus medullaris is within normal limits at the level of L1. T12-L1: There is no disc bulge, herniation, spinal stenosis, or foraminal narrowing. L1-L2: Minimal disc bulge and minimal facet arthropathy does not result in spinal stenosis or foraminal narrowing. L2-L3: There is circumferential broad-based disc bulge and mild ligamentum flavum thickening and facet arthropathy resulting in mild spinal stenosis and mild left lateral recess narrowing. There is minimal right foraminal narrowing without left-sided narrowing. L3-L4: There is mild loss disc height with degenerative endplate changes and circumferential broad-based disc bulge. There is mild to moderate facet arthropathy and ligamentum flavum thickening resulting in mild to moderate spinal stenosis and moderate bilateral subarticular zone narrowing. There is mild foraminal narrowing, greater on the left. L4-L5: There is disc desiccation with mild loss disc height and circumferential broad-based disc bulge with central to right central annular fissuring and small protrusion. There is moderate facet degeneration with ligamentum flavum thickening resulting in moderate spinal stenosis and moderate right subarticular zone narrowing. There is moderate right and mild left foraminal narrowing. L5-S1: Chronic bilateral pars intra-articularis defects are present. There is circumferential broad-based disc bulge. There is no spinal stenosis. There is mild bilateral foraminal narrowing, greater on the left. MR/MR lumbar spine wo con IMPRESSION: L2-L3: There is mild spinal stenosis and mild left lateral recess narrowing L3-L4: There is mild to moderate spinal stenosis and moderate bilateral subarticular zone narrowing. L4-L5: There is moderate spinal stenosis and moderate right subarticular zone narrowing. There is moderate right and mild left foraminal narrowing. L5-S1: Chronic bilateral pars intra-articularis defects are present with subtle anterolisthesis. Electronically signed by: Donato Foster MD 01/06/2025 11:49 AM EDT
--- OUTSIDE RECORDS SUMMARY | 2025-01-06 13:26 | XMS_ITS | Encounter Summary ---
Author Organization [facility] Address [address] [facility] [address] [place] [address] Phone Care Team Providers Care Leather Tooler Name Role Phone Pcp, Unknown Primary Care Provider Unavailabl e Encounter Details Date Type Department Care Team (Late st Contact Info) Description 08/27/2024 Procedure [facility] [address] [place] [address] Social History Tobacco Use Types Packs/Day Years Used Date Smoking Tobacco: Never Assessed Education Answer Date Recorded Are you interested in more education? Not on monica e 08/27/2024 Are you concerned about learning? Not on file 08/27/2024 No 08/27/2024 No 08/27/2024 Digital Access Answer Date Recorded No 08/27/2024 No 08/27/2024 Reliable internet access at home? Not on file 08/27/2024 Device with a working camera? Not on file Sex and Gender Information Value Date Recorded Sex Assigned at Male 08/27/2024 2:33 PM EDT Legal Sex Male 2:27 PM EDT Gender Identity Male 08/27/2024 2:33 PM EDT Sexual Orientation Straight 08/27/2024 2: 33 PM EDT documented as of this encounter Plan of Treatment Not on file documented as of this encounter Visit Diagnoses Not on filedocumented in this encounter Care Teams Leather Tooler Relationship Specialty Start Date End Date Pcp, Unknown PCP - General 08/27/24 documented as of this encounter Additional Source Comments The information contained in this document represents components of the legal health record. It is not the complete legal health record.[facility]
--- OUTSIDE RECORDS SUMMARY | 2025-01-06 13:26 | XMS_ITS | Encounter Summary ---
Author Organization [facility] Address [address] [address] Phone Care Team Providers Care Euclid Operator Name Role Phone Pcp, Unknown Primary Care Provider Unavailabl e Reason for Referral * MRI/CAT Scan - Closed Specialty Diagnoses / Procedures Referred By Contac t Referred To Contact Radiology Diagnoses Atherosclerosis of [place] coronary artery without angina pectoris, unspecified whether [place] or transplanted heart Procedures CT Angio Coronary Arteries CHG CT ANGIO HRT CORNRY ART/BYPASS GRFTS CONTRST 3D POST CHG CT HEART CONTRAST EVAL CARDIAC STRUCT/MORPH Vadim Mccartney MD [address] [place] [phone] Phone: tel: fax: Referral ID Status Reason Start Date Expiration Date Visits Re quested Visits Authorized [id number] Closed 08/27/2024 09/11/2024 1 1 Encounter Details Date Type Department Care Team (Latest Contact Info) Description 08/27/2024 Transcribe Orders [facility] Radiology Department [address] [facility] [id number] [place] [address] Vadim Mccartney MD [address] [place] [address] Atherosclerosis of [place] coronary artery without angina pectoris, unspecified whether [place] or transplanted heart (Primary Dx) Social History Tobacco Use Types Packs/Day Years [...] on file documented as of this encounter Results * CT ANGIO CORONARY ARTERIES WITH CONTRAST (09/11/2024 10:58 AM EDT) Anatomical Region Laterality Modality Heart Computed Tomogra phy 09/11/2024 12:5 2 PM EDT Impressions 09/11/2024 4:28 PM EDT * Overall, there is a severe amount of coronary plaque. * Mild (25-49%) non-obstructive coronary artery atherosclerosis of the [proximal and mid LAD * Mildly dilated ascending aorta measuring 4.0 x 4.0 cm. RECOMMENDATIONS: * CAD-RADS 2/P 2: Consider non-atherosclerotic causes of symptoms. Consider referral for outpatient follow-up for risk factor modification and preventive pharmacotherapy. ATTESTATION: Tito Taylor, as teaching physician have reviewed the images, if any, for this patient's exam, and if necessary, have edited the report originally created by Antonette Bradley. Narrative 09/11/2024 4:[address] ANGIO CORONARY ARTERIES WITH CONTRAST Referring clinician's provided indication for this examination in Epic: Outside Radiology Order Review of the Electronic Medical Record reveals an additional history of: studies scanned in with order: Echo 2024 - LVEF 55-60%, normal RV function, no . Normal ETT in 2024. CAC score 387 in 2024 TECHNIQUE: Contrast enhanced ECG-synchronized CT angiography of the heart and coronary arteries was performed, including 3D image postprocessing. Multiphase data was acquired at multiple phases of the R-R interval: mid- to late-diastole. Multiplanar post processing and 3D volume rendering were performed and interpreted. A maximum width full field of view was also reconstructed and reviewed. Delayed images were not acquired. COMPARISON: None FINDINGS: Coronary CTA: The quality of the exam is good. The left and right coronaries have normal origins. The coronary circulation is right dominant. Left Main: The left main coronary artery bifurcates into the LAD and LCx. There is no plaque or stenosis. Left Anterior Descending (LAD): The LAD reaches the wraps around the apex and gives rise to three diagonal (D) branches. Medium amount of partially calcified plaque resulting in mild (25-49%) stenosis of the proximal mid LAD. Left Circumflex (LCX): The left circumflex is a medium sized vessel that gives rise to one obtuse marginal (OM) branches. Small amount of partially calcified plaque resulting in minimal (1-24%) stenosis of the proximal LCx. Right Coronary Artery (RCA): The RCA is a dominant vessel that gives rise to the PDA and PLV branches. Small amount of partially calcified plaque resulting in mild (25-49%) stenosis of the posterior descending artery. Total Coronary Plaque [place]: There is a severe amount of coronary plaque (P3). NON-CORONARY CARDIAC FINDINGS: Chambers: The left atrium is normal in size. The right atrium is normal in size. The right ventricle is normal in size. The left ventricle is normal in size. There is no evidence of left ventricle or left atrial appendage thrombus. Myocardium: Normal left ventricular thickness. Valves: Trileaflet aortic valve without calcifications. Normal mitral valve. Pericardium: No pericardial effusion, calcification or thickening. Aorta: Mildly dilated ascending aorta measuring 4.0 x 4.0 cm. Pulmonary arteries: Normal size. INCIDENTAL FINDINGS: Small hiatal hernia. Mild diffuse bronchial wall thickening. Degenerative changes of visualized spine. Subsegmental atelectatic changes Procedure Note Tito Carbajal MD - 09/11/2024 CT ANGIO CORONARY ARTERIES WITH CONTRAST Referring clinician's provided indication for this examination in Epic:Outside Radiology Order Review of the Electronic Medical Record reveals an additional history of:studies scanned in with order: Echo 2024 - LVEF 55-60%, normal RVfunction, no . Normal ETT in 2024. CAC score 387 in 2024 TECHNIQUE: Contrast enhanced ECG-synchronized CT angiography of the heartand coronary arteries was performed, including 3D image postprocessing.Multiphase data was acquired at multiple phases of the R-R interval: mid-to late-diastole. Multiplanar post processing and 3D volume rendering wereperformed and interpreted. A maximum width full field of view was alsoreconstructed and reviewed. Delayed images were not acquired. COMPARISON: None FINDINGS: Coronary CTA: The quality of the exam is good. The left and right coronaries have normal origins. The coronary circulation is right dominant. Left Main: The left main coronary artery bifurcates into the LAD and LCx. There is no plaque or stenosis. Left Anterior Descending (LAD): The LAD reaches the wraps around the apex and gives rise to three diagonal(D) branches. Medium amount of partially calcified plaque resulting in mild (25-49%)stenosis of the proximal mid LAD. Left Circumflex (LCX): The left circumflex is a medium sized vessel that gives rise to one obtusemarginal (OM) branches. Small amount of partially calcified plaque resulting in minimal (1-24%)stenosis of the proximal LCx. Right Coronary Artery (RCA): The RCA is a dominant vessel that gives rise to the PDA and PLVbranches. Small amount of partially calcified plaque resulting in mild (25-49%)stenosis of the posterior descending artery. Total Coronary Plaque [place]: There is a severe amount of coronary plaque (P3). NON-CORONARY CARDIAC FINDINGS: Chambers: The left atrium is normal in size. The right atrium is normal insize. The right ventricle is normal in size. The left ventricle is normalin size. There is no evidence of left ventricle or left atrial appendagethrombus. Myocardium: Normal left ventricular thickness. Valves: Trileaflet aortic valve without calcifications. Normal mitralvalve. Pericardium: No pericardial effusion, calcification or thickening. Aorta: Mildly dilated ascending aorta measuring 4.0 x 4.0 cm. Pulmonary arteries: Normal size. INCIDENTAL FINDINGS: Small hiatal hernia. Mild diffuse bronchial wallthickening. Degenerative changes of visualized spine. Subsegmentalatelectatic changes IMPRESSION: * Overall, there is a severe amount of coronary plaque. * Mild (25-49%) non-obstructive coronary artery atherosclerosis of the[proximal and mid LAD * Mildly dilated ascending aorta measuring 4.0 x 4.0 cm. RECOMMENDATIONS: * CAD-RADS 2/P 2: Consider non-atherosclerotic causes of symptoms.Consider referral for outpatient follow-up for risk factor modificationand preventive pharmacotherapy. ATTESTATION: Tito Taylor, as teaching physician have reviewed theimages, if any, for this patient's exam, and if necessary, have edited thereport originally created by Antonette Bradley. Vadim Mccartney MD IMG CT CARDIAC Final Result documented in this encounter Visit Diagnoses Diagnosis Atherosclerosis of [place] coronary artery without angina pectoris, unspecified whether [place] or transplanted heart- Primary Atherosclerosis of [place] coronary artery without angina pectoris, unspecified whether [place] or transplanted heart documented in this encounter Care Teams Euclid Operator Relationship Specialty Start Date End Date Pcp, Unknown PCP - General 08/27/24 documented as of this encounter Additional Source Comments The information contained in this document represents components of the legal health record. It is not the complete legal health record.[facility]
--- OUTSIDE RECORDS SUMMARY | 2025-01-06 13:26 | XMS_ITS | Clinical Summary ---
Author Organization Located Within [facility] Address [address] [place] [address] [place] [phone] Phone Care Team Providers Care Dish Person Name Role Phone Pcp, Unknown Primary Care Provider Unavailabl e Social History Tobacco Use Types Packs/Day Years Used Date Smoking Tobacco: Never Assessed Education Answer Date Recorded Are you interested in more education? Not on monica e 09/11/2024 Are you concerned about learning? Not on file 09/11/2024 No 09/11/2024 No 09/11/2024 Digital Access Answer Date Recorded No 09/11/2024 No 09/11/2024 Reliable internet access at home? Not on file 09/11/2024 Device with a working camera? Not on file Sex and Gender Information Value Date Recorded Sex Assigned at Male 08/27/2024 2:33 PM EDT Legal Sex Male 2:27 PM EDT Gender Identity Male 08/27/2024 2:33 PM EDT Sexual Orientation Straight 08/27/2024 2: 33 PM EDT Plan of Treatment Not on file Medical Devices Not on file Insurance [facility] [employer] B[employer]EF[employer] [facility] [employer] [facility] [employer] Care Teams Dish Person Relationship Specialty Start Date End Date Pcp, Unknown PCP - General 08/27/24 Additional Source Comments The information contained in this document represents components of the legal health record. It is not the complete legal health record.[facility]
== END 2025-01-06 10:50 | disposition home or self-care (01) ==
LOC: HO.MRI 10:49
PROVIDERS: Visit Provider Physician Assistant
DX: M47.816 Spondylosis without myelopathy or radiculopathy, lumbar region (principal); M48.00 Spinal stenosis, site unspecified
CPT/HCPCS: 72110; 72148

== ENCOUNTER → 2025-01-06 10:52 | Outpatient (BNV) | payer OTHER, SELFPAY | PROVIDERS: Visit Provider Radiology Diagnostic Radiology | DX: M47.816 Spondylosis without myelopathy or radiculopathy, lumbar region (principal) | CPT/HCPCS: 72110 ==

== ENCOUNTER 2025-01-10 13:16 | Outpatient (AMB) | payer OTHER, SELFPAY ==
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
[2025-01-10 13:33] VITALS: BMI 35.7
--- OUTSIDE RECORDS SUMMARY | 2025-01-10 14:20 | XMS_ITS | Encounter Summary ---
Author Organization [facility] Address [address] [facility] [address] [place] [phone] Phone Care Team Providers Care Dish Technician Name Role Phone Pcp, Unknown Primary Care Provider Unavailabl e Encounter Details Date Type Department Care Team (Late st Contact Info) Description 08/27/2024 Procedure [facility] [address] [place] [address] Social History Tobacco Use Types Packs/Day Years [...] on filedocumented in this encounter Care Teams Dish Technician Relationship Specialty Start Date End Date Pcp, Unknown PCP - General 08/27/24 documented as of this encounter Additional Source Comments The information contained in this document represents components of the legal health record. It is not the complete legal health record.[facility]
--- OUTSIDE RECORDS SUMMARY | 2025-01-10 14:20 | XMS_ITS | Clinical Summary ---
Author Organization [facility] Address [address] [place] [address] [place] [phone] Phone Care Team Providers Care Zoning Technician Name Role Phone Pcp, Unknown Primary [...] file Medical Devices Not on file Insurance [facility] [employer] [facility] [employer] [facility] [employer] Care Teams Zoning Technician Relationship Specialty Start Date End Date Pcp, Unknown PCP - General 08/27/24 Additional Source Comments The information contained in this document represents components of the legal health record. It is not the complete legal health record.[facility]
--- OUTSIDE RECORDS SUMMARY | 2025-01-10 14:20 | XMS_ITS | Encounter Summary ---
Author Organization [facility] Address [address] [address] Phone Care Team Providers Care Energy Auditor Name Role Phone Pcp, Unknown Primary Care Provider Unavailabl e Reason for Referral * MRI/CAT Scan - Closed Specialty Diagnoses / Procedures Referred By Contac t Referred To Contact Radiology Diagnoses Atherosclerosis of [place] coronary artery without angina pectoris, unspecified whether [place] or transplanted heart Procedures CT Angio Coronary Arteries CHG CT ANGIO HRT CORNRY ART/BYPASS GRFTS CONTRST 3D POST CHG CT HEART CONTRAST EVAL CARDIAC STRUCT/MORPH Vadim Mccartney MD [address] [place] [phone] Phone: tel: fax: Referral ID Status Reason Start Date Expiration Date Visits Re quested Visits Authorized [id number] Closed 08/27/2024 09/11/2024 1 1 Encounter Details Date Type Department Care Team (Latest Contact Info) Description 08/27/2024 Transcribe Orders [facility] Department [address] [facility] [id number] [place] [address] Vadim Mccartney MD [address] [place] [address] Atherosclerosis of [place] coronary artery without angina pectoris, unspecified whether [place] or transplanted heart (Primary Dx) Social History [...] the posterior descending artery. Total Coronary Plaque Candia: There is a severe amount of coronary [...] the posterior descending artery. 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 It is not the complete legal health record.[facility]
== END 2025-01-10 14:01 | disposition home or self-care (01) ==
LOC: HO.HNS 13:17
PROVIDERS: Visit Provider Neurological Surgery
DX: M51.369 Other intervertebral disc degeneration, lumbar region without mention of lumbar back pain or lower extremity pain (principal)
CPT/HCPCS: 99204